=== PATIENT | male | born 1965 | race Caucasian/White ===

== ENCOUNTER 2022-09-17 02:18 | Emergency (ER) | payer MEDICARE, MEDICAID, SELFPAY ==
[2022-09-17 02:20] VITALS: BMI 27.3
--- NOTE | 2022-09-17 02:20 | W.ED.GENADLT ---
HPI - General Adult General: Chief complaint: Overdose Stated complaint: diabetic problems Time Seen by Provider: 09/17/22 02:20 Limitations: altered mental status History of Present Illness: Mr. Tabares is a 56-year-old gentleman with history of diabetes presenting to the emergency department for possible accidental drug overdose. He reports being out at a camp and drinking, though he reports only 2 shots, earlier today. He figured since he had been drinking he should take more than typical of his long-acting insulin and took 32 units. He is somewhat vague on what he takes at baseline. Patient appears mildly clinically intoxicated and somewhat mumbling. Denies trauma. No other specific changes in health, exacerbating, or alleviating factors identified. Review of Systems General: Reports: ROS unobtainable due to mental status Physical Exam Const: COMMON NORMALS: alert GENERAL APPEARANCE: cooperative and well developed HENMT: COMMON NORMALS: normocephalic and atraumatic HEAD & SCALP: normocephalic and atraumatic THROAT: posterior oropharynx normal Eye: COMMON NORMALS: conjunctivae normal CONJUNCTIVA: Yes conjunctivae normal SCLERA: sclerae normal Neck/C-Spine: COMMON NORMALS: supple GENERAL: Yes trachea midline Resp: COMMON NORMALS: normal respiratory effort EFFORT & INSPECTION: Yes able to speak in complete sentences Cardio: COMMON NORMALS: regular rate and regular rhythm RATE: regular rate RHYTHM: regular rhythm GI: COMMON NORMALS: Soft to palpation PALPATION: Yes Soft to palpation, Yes Tenderness to palpation present (GI), No Guarding due to palpation present (GI) and No Rigid due to palpation PERCUSSION: normal to percussion Extremity: GENERAL: Yes normal exam except as noted and No edema Neuro: COMMON NORMALS: moves all extremities SENSORIUM/ORIENTATION: Yes alert and Yes Orientation impaired Psych: COMMON NORMALS: denies homicidal ideation and denies suicidal ideation Course Vital Signs: Vital signs: Vital Signs Temperature 97.9 F 09/17/22 02:23 Pulse Rate 80 09/17/22 05:00 Respiratory Rate 16 09/17/22 06:24 Blood Pressure 157/90 09/17/22 06:24 Pulse Oximetry 96 09/17/22 05:00 Oxygen Delivery Me thod Room Air 09/17/22 05:00 [facility] - General Adult Medical Decision Making 57-year-old gentleman presenting with mental status change. Exam as above. No focal neurodeficits though patient is somewhat altered. He is nontoxic. No meningitic signs. EKG demonstrates sinus rhythm with normal intervals and axis, no STEMI. Labs with no leukocytosis, normal hemoglobin and platelet count. Metabolic panel with mild hypokalemia. Mild transaminitis of uncertain etiology. Surprisingly alcohol level is negative warranting further evaluation. CT head negative for acute pathology requiring intervention. Chest x-ray negative for lobar consolidation or pneumothorax. CT abdomen pelvis notable for no acute pathology. During ED course patient treated with potassium replenishment and on reassessment he appears improved. His mental state has improved and is able to tolerate p.o. intake. The results of ED evaluation were discussed with the patient including prescriptions and/or symptomatic cares (if applicable) including appropriate and responsible use, followup plan, and return precautions. The patient verbalized understanding and felt safe for discharge. Medical Records I reviewed the patient's medical records. Lab Data I reviewed the patient's lab results. 09/17/22 02:33 09/17/22 02:33 Radiology Impressions Chest X-Ray 09/17/22 03:32 IMPRESSION: Negative for acute chest pathology. Head CT 09/17/22 03:32 IMPRESSION: No acute intracranial abnormality. Abdomen/Pelvis CT 09/17/22 03:37 IMPRESSION: Negative for acute abdominopelvic pathology. Laboratory Results WBC 8.0 10^3/uL (4.0-10.0) 09/17/22 02:33 RBC 4.29 10^6/uL (4.1-5.3) 09/17/22 02:33 Hgb 12.5 g/dL (11.7-16.6) 09/17/22 02:33 Hct 38.4 % (42.0-52.0) L 09/17/22 02:33 MCV 89.5 fl (80-94) 09/17/22 02:33 MCH 29.1 pg (28.0-34.0) 09/17/22 02:33 MCHC 32.6 g/dL (30.0-36.0) 09/17/22 02:33 RDW 13.3 % (12.1-15.1) 09/17/22 02:33 Plt Count 171 10^3/cmm (130-400) 09/17/22 02:33 MPV 9.3 fL (7.4-10.4) 09/17/22 02:33 Neut % (Auto) 72.3 % 09/17/22 02:33 Lymph % (Auto) 18.3 % 09/17/22 02:33 [place] % (Auto) 6.2 % 09/17/22 02:33 Eos % (Auto) 1.6 % 09/17/22 02:33 Baso % (Auto) 1.1 % 09/17/22 02:33 Neut # (Auto) 5.75 10^3/uL (1.8-7.7) 09/17/22 02:33 Lymph # (Auto) 1.5 10^3/uL (0.8-4.8) 09/17/22 02:33 [place] # (Auto) 0.5 10^3/uL (0.2-0.9) 09/17/22 02:33 Eos # (Auto) 0.1 10^3/uL (0.0-0.8) 09/17/22 02:33 Baso # (Auto) 0.1 10^3/uL (0.0-0.1) 09/17/22 02:33 Nucleated RBC % (auto) 0 % 09/17/22 02:33 Nucleated RBCs # 0.0 /100WBC 09/17/22 02:33 Sodium 140 mmol/L (136-145) 09/17/22 02:33 Potassium 3.2 mmol/L (3.5-5.1) L 09/17/22 02:33 Chloride 104 mmol/L (98-107) 09/17/22 02:33 Carbon Dioxide 27 mmol/L (22-29) 09/17/22 02:33 Anion Gap 12.2 (5-19) 09/17/22 02:33 BUN 14 mg/dL (6-20) 09/17/22 02:33 Creatinine 0.9 mg/dL (0.7-1.2) 09/17/22 02:33 GFR Calculation 86.7 mL/min (90-130) L 09/17/22 02:33 Glucose 84 mg/dL (65-115) 09/17/22 02:33 POC Glucose 130 mg/dL (70-110) H 09/17/22 05:47 Calculated Osmolality 290 mOsm/kg (285-295) 09/17/22 02:33 Calcium 8.6 mg/dL (8.5-10.5) 09/17/22 02:33 Total Bilirubin 0.3 mg/dL (0.15-1.2) 09/17/22 02:33 AST 72 U/L (0-40) H 09/17/22 02:33 ALT 133 U/L (0-41) H 09/17/22 02:33 Alkaline Phosphatase 87 U/L (40-130) 09/17/22 02:33 Troponin T Baseline 23 ng/L (0-15) H 09/17/22 02:33 Troponin T 120 Minute 22.44 ng/L (0-15) H 09/17/22 04:42 Delta Troponin T -0.56 ABS# (0-10) L 09/17/22 04:42 Total Protein 6.2 g/dL (6.6-8.7) L 09/17/22 02:33 Albumin 3.8 g/dL (3.5-5.2) 09/17/22 02:33 Globulin 2.4 g/dL (1.3-4.6) 09/17/22 02:33 Lipase 23 U/L (13-60) 09/17/22 02:33 TSH 5.14 uIU/mL (0.27-4.20) H 09/17/22 02:33 Free T4 1.12 ng/dL (0.82-1.77) 09/17/22 02:33 Urine Color Yellow (Yellow) 09/17/22 02:48 Urine Appearance Clear (CLEAR) 09/17/22 02:48 Urine pH 5 (5-7) 09/17/22 02:48 Ur Specific [place] 1.010 (1.005-1.030) 09/17/22 02:48 Urine Protein Neg (Negative) 09/17/22 02:48 Urine Glucose (UA) Norm (Normal) 09/17/22 02:48 Urine Ketones 1+ (Negative) H 09/17/22 02:48 Urine Blood Neg (Negative) 09/17/22 02:48 Urine Nitrate Negative (Negative) 09/17/22 02:48 Urine Bilirubin Neg (Negative) 09/17/22 02:48 Urine Urobilinogen 1 mg/dL (Negative) H 09/17/22 02:48 Ur Leukocyte Esterase Trace (Negative) H 09/17/22 02:48 Urine RBC None /hpf (0-2) 09/17/22 02:48 Urine WBC None /hpf (0-5) 09/17/22 02:48 Ur Squamous Epith Cells None /hpf (0-5) 09/17/22 02:48 Amorphous Sediment Not Reportable 09/17/22 02:48 Urine Bacteria None /hpf (NONE) 09/17/22 02:48 Salicylates < 0.3 mg/dL (3-10) L 09/17/22 02:33 Urine Opiates Screen Negative ng/mL (Negative) 09/17/22 02:48 Acetaminophen < 5.0 ug/mL (10-30) L 09/17/22 02:33 Ur Barbiturates Screen Negative ng/mL (Negative) 09/17/22 02:48 Ur Phencyclidine Scrn Negative ng/mL (Negative) 09/17/22 02:48 Ur Amphetamines Screen Negative ng/mL (Negative) 09/17/22 02:48 U Benzodiazepines Scrn Negative ng/mL (Negative) 09/17/22 02:48 Urine Cocaine Screen Negative ng/mL (Negative) 09/17/22 02:48 U Marijuana (THC) Screen Negative ng/mL (Negative) 09/17/22 02:48 Ethyl Alcohol < 10 mg/dL (0-10) 09/17/22 02:33 Discharge Plan Discharge Patient Disposition: Home Clinical Impression: Accidental overdose of insulin, Abdominal pain, Altered mental status, Hypokalemia, Transaminitis, Folliculitis Condition: Stable Prescriptions: New cephalexin 500 mg capsule 500 mg PO Q6H 10 Days Qty: 40 0RF Discharge Orders: Discharge ED (Routine); Ordered 09/17/22 Ordered By: Abdirahman Jordan Discharge Diet: Diabetic Discharge Activity: Increase activity as tolerated Patient Instructions: Folliculitis (ED), Abdominal Pain (ED), Altered Mental Status (ED), What to Do if Your Blood Sugar is Low (ED) Activity Restrictions/Additional Instructions: Thank you for visiting the emergency department. You were seen and evaluated for mental status change with possible accidental insulin overdose. The exact cause of your symptoms is unclear. Given that you likely took more than your typical dose of long-acting insulin I recommend close watching over the next 24 hours and checking your blood sugar hourly. Please follow-up with a primary care provider. Return to the emergency department for uncontrolled symptoms or anything else that you are concerned about and feel needs emergency department evaluation. Coding Level of Care Code ED Projection Printer for Alexandre Caputo
[2022-09-17 02:23] VITALS: BP 136/87; PULSE 70; RESP 16; TEMP 36.6; O2SAT 95
[2022-09-17 02:28] LABS: Glucose Point of Care 95 mg/dL (70-110)
[2022-09-17 02:38] LABS: Basophils # 0.1 10^3/uL (0.0-0.1); Basophils % 1.1 %; Eosinophils # 0.1 10^3/uL (0.0-0.8); Eosinophils % 1.6 %; Hematocrit 38.4 % (42.0-52.0); Hemoglobin 12.5 g/dL (11.7-16.6); Lymphocytes # 1.5 10^3/uL (0.8-4.8); Lymphocytes % 18.3 %; Mean Corpuscular HGB Conc 32.6 g/dL (30.0-36.0); Mean Corpuscular Hemoglobin 29.1 pg (28.0-34.0); Mean Corpuscular Volume 89.5 fl (80-94); Mean Platelet Volume 9.3 fL (7.4-10.4); Monocytes # 0.5 10^3/uL (0.2-0.9); Monocytes % 6.2 %; Neutrophils # 5.75 10^3/uL (1.8-7.7); Neutrophils % 72.3 %; Nucleated Red Blood Cells % 0 %; Platelet Count 171 10^3/cmm (130-400); Red Blood Count 4.29 10^6/uL (4.1-5.3); Red Cell Distribution Width 13.3 % (12.1-15.1)
[2022-09-17 02:53] VITALS: BP 128/79; O2SAT 96
[2022-09-17 02:56] LABS: Alanine Aminotransferase 133 U/L (0-41); Albumin Level 3.8 g/dL (3.5-5.2); Alkaline Phosphatase 87 U/L (40-130); Anion Gap 12.2 (5-19); Aspartate Amino Transferase 72 U/L (0-40); Blood Urea Nitrogen 14 mg/dL (6-20); Calcium 8.6 mg/dL (8.5-10.5); Carbon Dioxide 27 mmol/L (22-29); Chloride 104 mmol/L (98-107); Globulin 2.4 g/dL (1.3-4.6); Glomerular Filtration Rate 86.7 mL/min (90-130); Glucose 84 mg/dL (65-115); Lipase 23 U/L (13-60); Osmolality Calculated 290 mOsm/kg (285-295); Potassium 3.2 mmol/L (3.5-5.1); Sodium 140 mmol/L (136-145); Total Bilirubin 0.3 mg/dL (0.15-1.2); Total Protein 6.2 g/dL (6.6-8.7)
[2022-09-17 03:10] LABS: Glucose Point of Care 91 mg/dL (70-110)
[2022-09-17 03:31] LABS: Alcohol Level < 10 mg/dL (0-10)
--- NOTE | 2022-09-17 03:32 | XRR_ITS ---
PROCEDURE INFORMATION: Exam: XR Chest Exam date and time: 09/17/2022 3:36 AM Age: 56 years old Clinical indication: Other: AMS; Prior surgery; Surgery date: 6+ months; Surgery type: Cabg TECHNIQUE: Imaging protocol: Radiologic exam of the chest. Views: 1 view. COMPARISON: No relevant prior studies available. FINDINGS: Lungs: Unremarkable. No consolidation. Pleural spaces: Unremarkable. No pleural effusion. No pneumothorax. Heart/Mediastinum: Mild cardiomegaly. Bones/joints: Broken median sternotomy wires. XR/XR chest 1V portable [id number] IMPRESSION: Negative for acute chest pathology.
--- NOTE | 2022-09-17 03:32 | CTR_ITS ---
PROCEDURE INFORMATION: Exam: CT Head Without Contrast Exam date and time: 09/17/2022 3:55 AM Age: 56 years old Clinical indication: Altered mental status/memory loss; Additional info: AMS TECHNIQUE: Imaging protocol: Computed tomography of the head without contrast. Radiation optimization: All CT scans at this facility use at least one of these dose optimization techniques: automated exposure control; mA and/or kV adjustment per patient size (includes targeted exams where dose is matched to clinical indication); or iterative reconstruction. REPORTING DATA: Count of CT and Cardiac NM exams in prior 12 months: This patient has received 0 known CTs and 0 known cardiac nuclear medicine studies in the 12 months prior to the current study. COMPARISON: No relevant prior studies available. RADIATION DOSE METRICS: Total DLP (mGy-cm): 1212.18 FINDINGS: Brain: Mild diffuse cerebral cortical volume loss. No hemorrhage. Unremarkable white matter. No mass effect. Cerebral ventricles: No ventriculomegaly. Paranasal sinuses: Visualized sinuses are unremarkable. No fluid levels. Mastoid air cells: Visualized mastoid air cells are well aerated. Bones/joints: Unremarkable. No acute fracture. Soft tissues: Unremarkable. CT/CT head wo con* [id number] IMPRESSION: No acute intracranial abnormality.
--- NOTE | 2022-09-17 03:33 | ECG_ITS ---
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 Measurements Intervals [place] Rate: 79 P: 64 FL: 175 QRS: 73 QRSD: 125 T: 40 QT: 390 QTc: 448 Interpretive Statements SINUS RHYTHM POSSIBLE INFERIOR MYOCARDIAL INFARCTION , PROBABLY OLD [30 ms Q WAVE IN II/aVF] No previous ECG available for comparison Electronically Signed On 09-17-2022 23:28:36 CDT by Jakub Quezada M.D. [email or web address] medical groupBrightbluemercy health st. rita's medical centerEngineered [employer] Solutions/store/OM/[id number]
--- NOTE | 2022-09-17 03:37 | CTR_ITS ---
PROCEDURE INFORMATION: Exam: CT Abdomen And Pelvis With Contrast Exam date and time: 09/17/2022 4:00 AM Age: 56 years old Clinical indication: Abdominal pain; Generalized; Additional info: Abd pain TECHNIQUE: Imaging protocol: Computed tomography of the abdomen and pelvis with contrast. Radiation optimization: All CT scans at this facility use at least one of these dose optimization techniques: automated exposure control; mA and/or kV adjustment per patient size (includes targeted exams where dose is matched to clinical indication); or iterative reconstruction. Contrast material: OMNI 350; Contrast volume: 100 ml; Contrast route: INTRAVENOUS (IV); REPORTING DATA: Count of CT and Cardiac NM exams in prior 12 months: This patient has received 0 known CTs and 0 known cardiac nuclear medicine studies in the 12 months prior to the current study. COMPARISON: CR (CHEST, ) 09/17/2022 3:36 AM RADIATION DOSE METRICS: Total DLP (mGy-cm): 927.28 FINDINGS: Liver: Normal. No mass. Gallbladder and bile ducts: Cholecystectomy. Nondilated biliary system. Pancreas: Normal. No ductal dilation. Spleen: Normal. No splenomegaly. Adrenal glands: Normal. No mass. Kidneys and ureters: Normal. No hydronephrosis. Stomach and bowel: Mild severity diverticulosis coli. Negative for inflammatory bowel wall thickening. Negative for bowel obstruction. Negative for bowel perforation. Negative for pneumatosis intestinalis. Appendix: Normal appendix. Intraperitoneal space: Unremarkable. No free air. No significant fluid collection. Vasculature: Unremarkable. No abdominal aortic aneurysm. Lymph nodes: Unremarkable. No enlarged lymph nodes. Urinary bladder: Unremarkable as visualized. Reproductive: Unremarkable as visualized. Bones/joints: Unremarkable. No acute fracture. Soft tissues: Unremarkable. CT/CT abdomen pelvis w con* [id number] IMPRESSION: Negative for acute abdominopelvic pathology.
[2022-09-17 03:47] LABS: Bilirubin Urine Neg (Negative); Blood Urine Neg (Negative); Glucose Urine UA Norm (Normal); Ketones Urine 1+ (Negative); Nitrate Urine Negative (Negative); Protein Urine Neg (Negative); Urine Appearance Clear (CLEAR); Urine Color Yellow (Yellow); pH Urine 5 (5-7)
[2022-09-17] MEDS: lidocaine 1% 5 ML in potassium chloride premix 100 ML 26.25 ML IV (03:47)
[2022-09-17 03:48] LABS: Add Urine Microscopic? YES; Leukocyte Esterase Urine Trace (Negative); Urobilinogen Urine 1 mg/dL (Negative)
[2022-09-17 03:50] LABS: Amphetamines Screen Urine Negative (Negative); Barbiturates Screen Urine Negative (Negative); Benzodiazepines Screen Urine Negative (Negative); Cocaine Screen Urine Negative (Negative); Opiate Screen Urine Negative (Negative); PCP Screen Urine Negative (Negative); THC Screen Urine Negative (Negative)
[2022-09-17 04:23] VITALS: BP 122/78; PULSE 88; RESP 19; O2SAT 97
[2022-09-17 04:24] LABS: Acetaminophen < 5.0 ug/mL (10-30); Salicylate < 0.3 mg/dL (3-10); Thyroid Stimulating Hormone 5.14 uIU/mL (0.27-4.20)
[2022-09-17 04:42] LABS: Glucose Point of Care 166 mg/dL (70-110)
[2022-09-17] MEDS: iohexol 350 mg/mL 500 mL Btl (per mL) IV (04:43)
[2022-09-17 04:44] LABS: Troponin(5th) Baseline 23 ng/L (0-15)
--- NOTE | 2022-09-17 04:46 | PC.NURSE ---
Pt to CT scan with gerardo. Went over to check on patient as it was taking longer than expected. Tech reported that the patient would not hold still and was masturbating while she was trying to scan him. Pt told her that he couldn't help it, he had a hard-on. when told to stop, he told her that he was killing her. Dr Jordan notified of this behavior.
[2022-09-17 05:00] VITALS: BP 133/77; PULSE 80; RESP 16; O2SAT 96
[2022-09-17 05:12] LABS: Troponin 5 2HR 22.44 ng/L (0-15)
[2022-09-17 05:14] LABS: Free T4 Free Thyroxine 1.12 ng/dL (0.82-1.77)
--- NOTE | 2022-09-17 05:33 | ECG_ITS ---
[facility] Test Date: 2022-09-17 Pat Name: Conrad Tabares Department: Room: Gender: Male Supervisor Cartography: : 1965 Requested By: Abdirahman Jordan Order Number: [id number] Evans MD: Jakub Quezada M.D. Measurements Intervals [place] Rate: 70 P: 58 MI: 189 QRS: 70 QRSD: 129 T: 48 QT: 398 QTc: 431 Interpretive Statements SINUS RHYTHM PROBABLE INFERIOR MYOCARDIAL INFARCTION , PROBABLY OLD [35 ms Q WAVE IN II/aVF] Compared to ECG 09/17/2022 03:38:23 No significant changes Electronically Signed On 09-18-2022 8:31:24 CDT by Jakub Quezada M.D. [email or web address] [facility]ger Pictureohio[facility].[employer]/store/[id number]
[2022-09-17 05:54] LABS: Glucose Point of Care 130 mg/dL (70-110)
[2022-09-17 05:55] LABS: Troponin 5 2HR Delta -0.56 ABS# (0-10)
[2022-09-17] MEDS: potassium chloride ER 20 mEq Tablet 40 MEQ PO (06:04)
[2022-09-17 06:24] VITALS: BP 157/90; RESP 16
--- NOTE | 2022-09-21 13:13 | DCPLANNER ---
manager operating called patient due to no primary care physician - no answer at this time.
== END 2022-09-17 06:24 | disposition home or self-care (01) ==
PROVIDERS: Emergency Provider Emergency Medicine
DX: T38.3X1A Poisoning by insulin and oral hypoglycemic [antidiabetic] drugs, accidental (unintentional), initial encounter (principal); R74.01 Elevation of levels of liver transaminase levels; R41.82 Altered mental status, unspecified; E87.6 Hypokalemia; L73.9 Follicular disorder, unspecified
CPT/HCPCS: 36415; 36416; 70450; 71045; 74177; 80053; 80306; 80307; 81001; 82962; 83690; 84439; 84443; 84484; 85025; 93005; 96365; 96366; 99285; J3480; Q9967